=== PATIENT | female | born 1940 | race Caucasian/White ===

== ENCOUNTER → 2019-02-04 | Outpatient (CLI) | payer OTHER ==
--- NOTE | 2019-02-06 12:57 | RAD ---
DATE: February 04, 2019 EXAM: MAMMO BRIDGER SCREENING BILATERAL HISTORY: Screening study. COMPARISON: April 18, 2015 2-D digital mammographic views of both breasts were performed in the CC and MLO projections. 3-D digital tomosynthesis images of both breasts were performed in the CC and MLO projections and reviewed on a computer workstation. This study was interpreted with the benefit of Computerized Aided Detection (CAD). FINDINGS: Breast Density: FATTY The breast parenchyma is primarily fatty replaced. Breast parenchyma level density A.. There are no dominant suspicious masses, suspicious microcalcifications or evidence of architectural distortion. IMPRESSION: No mammographic indicators for malignancy. BI-RADS CATEGORY: 1 NEGATIVE RECOMMENDED FOLLOW-UP: 12M 12 MONTH FOLLOW-UP PQRS compliance statement: Patient information was entered into a reminder system with a target due date February 06, 2020 for the next mammogram. Mammography is a sensitive method for finding small breast cancers, but it does not detect them all and is not a substitute for careful clinical examination. A negative mammogram does not negate a clinically suspicious finding and should not result in delay in biopsying a clinically suspicious abnormality. "Our facility is accredited by the [employer] Mammography Program." The patient's breast density may affect the ability of mammography to detect breast cancer. There are 4 categories of breast density, A, B, C and D. Breast density A means that most of the breast tissue is replaced with adipose tissue and therefore is not dense. Breast density B means that the breast tissue is mildly dense and scattered. Breast density C means that the breast tissue is heterogeneously dense. Breast density D means that the breast tissue is very dense. Breast densities especially C and D may decrease the sensitivity of mammography to detect breast cancer. Therefore, the patient may benefit from 3-D breast mammography (3D breast tomography) as a part of their screening mammogram. Insurance may or may not pay for this additional imaging. The patient's breast density based on today's mammogram is category A.
== END | disposition home or self-care (01) ==
LOC: MAMMO 10:10
PROVIDERS: ATTEND Family Medicine
DX: Z12.31 Encounter for screening mammogram for malignant neoplasm of breast (principal)
CPT/HCPCS: 77063; 77067

== ENCOUNTER 2019-07-09 12:58 | Inpatient (IN) | payer OTHER ==
[~2019-07-09] VITALS: Ht 162.6 cm; Wt 62.4 kg
[2019-07-09] MEDS ORDERED: ONDANSETRON PF 4 MG/2 ML VIAL. IV ONE (15:00)
[2019-07-09] MEDS ORDERED: fentaNYL PF VIAL 100 MCG/2 ML VIAL IV ONE (15:00)
[2019-07-09] MEDS ORDERED: CLINDAMYCIN 600MG PREMIX 50 ML IV ONE (15:00)
--- NOTE | 2019-07-09 15:31 | RAD ---
AP and lateral right tibia and fibula radiographs 07/09/2019 CLINICAL HISTORY: Right lower leg injury. AP and lateral digital radiographs of the right tibia and fibula were obtained. No fracture or dislocation is seen. No radiopaque foreign body is noted. IMPRESSION: No fracture or dislocation of the right tibia or fibula is seen. Electronically signed by: Hunter Vasques MD (07/09/2019 3:28 PM) [facility]
--- NOTE | 2019-07-09 15:41 | PHYS DOC ---
Past Medical History Past Medical History: Depression, High Cholesterol Additional Past Medical Histor: high cholesterol, Parkinsons Past Surgical History: No Surgical History Additional Past Surgical Histo: eye surgery Alcohol Use: Occasionally Drug Use: None Adult General Chief Complaint Chief Complaint: FOOT INJURY PAIN [facility] HPI Patient is a 79 year old female that presents with right lower extremity pain has been ongoing since Wednesday. The patient states that she fell while her was trying to push a trailer and the trailer ran over her leg. The patient states she cut her leg and then 2 days later it started getting red and hot to the touch. She started bruising right after the trailer went over the R leg. She rates her pain as 10 out of 10 in severity and sharp. Has not taken anything for the pain. Review of Systems Review of Systems Constitutional: Denies fever or chills [] Eyes: Denies change in visual acuity, redness, or eye pain [] HENT: Denies nasal congestion or sore throat [] Respiratory: Denies cough or shortness of breath [] Cardiovascular: No additional information not addressed in HPI [] GI: Denies abdominal pain, nausea, vomiting, bloody stools or diarrhea [] : Denies dysuria or hematuria [] Musculoskeletal: Reports pain to the R lower extremity. Integument: Reports bruising and redness. Neurologic: Denies headache, focal weakness or sensory changes [] Endocrine: Denies polyuria or polydipsia [] Complete systems were reviewed and found to be within normal limits, except as documented in this note. Current Medications Current Medications Current Medications Medications (Trade) Dose Ordered Sig/Brenda Start Time Stop Time Status Last Admin Dose Admin Clindamycin Phosphate 50 ml @ 100 mls/hr 1X ONCE 07/09/19 15:00 07/09/19 15:29 DC 07/09/19 15:53 100 MLS/HR Fentanyl Citrate (Fentanyl 2ml Vial) 50 mcg PRN Q1HR PRN 07/09/19 16:45 07/10/19 16:44 Ondansetron HCl (Zofran) 4 mg PRN Q8HRS PRN 07/09/19 16:45 07/10/19 16:44 Allergies Allergies Allergies Coded Allergies Type Severity Reaction Last Updated Verified No Known Drug Allergies 12/24/13 No Physical Exam Physical Exam Constitutional: Well developed, well nourished, no acute distress, non-toxic appearance. [] HENT: Normocephalic, atraumatic, bilateral external ears normal, oropharynx moist, no oral exudates, nose normal. [] Eyes: PERRLA, EOMI, conjunctiva normal, no discharge. [] Neck: Normal range of motion, no tenderness, supple, no stridor. [] Cardiovascular:Heart rate regular rhythm, no murmur [] Lungs & Thorax: Bilateral breath sounds clear to auscultation [] Abdomen: Bowel sounds normal, soft, no tenderness, no masses, no pulsatile masses. [] Skin: Bruising and erythema to the R leg. Back: No tenderness, no CVA tenderness. [] Extremities: Tenderness and edema to R leg, cut superior to ankle that is scabbed over. Neurologic: Alert and oriented X 3, normal motor function, normal sensory function, no focal deficits noted. [] Psychologic: Affect normal, judgement normal, mood normal. [] Current Patient Data Vital Signs Vital Signs Date Time Temp Pulse Resp B/P (MAP) Pulse Ox O2 Delivery O2 Flow Rate FiO2 07/09/19 13:35 97.7 80 20 97/49 (65) 95 Room Air 97.7 Lab Values Laboratory Tests Test 07/09/19 15:40 White Blood Count 8.6 x10^3/uL (4.0-11.0) Red Blood Count 4.08 x10^6/uL (3.50-5.40) Hemoglobin 12.5 g/dL (12.0-15.5) Hematocrit 37.4 % (36.0-47.0) Mean Corpuscular Volume 92 fL (79-100) Mean Corpuscular Hemoglobin 31 pg (25-35) Mean Corpuscular Hemoglobin Concent 34 g/dL (31-37) Red Cell Distribution Width 12.8 % (11.5-14.5) Platelet Count 188 x10^3/uL (140-400) Neutrophils (%) (Auto) 74 % (31-73) H Lymphocytes (%) (Auto) 16 % (24-48) L Monocytes (%) (Auto) 7 % (0-9) Eosinophils (%) (Auto) 2 % (0-3) Basophils (%) (Auto) 1 % (0-3) Neutrophils # (Auto) 6.4 x10^3/uL (1.8-7.7) Lymphocytes # (Auto) 1.4 x10^3/uL (1.0-4.8) Monocytes # (Auto) 0.6 x10^3/uL (0.0-1.1) Eosinophils # (Auto) 0.2 x10^3/uL (0.0-0.7) Basophils # (Auto) 0.0 x10^3/uL (0.0-0.2) Sodium Level 144 mmol/L (136-145) Potassium Level 3.9 mmol/L (3.5-5.1) Chloride Level 107 mmol/L (98-107) Carbon Dioxide Level 29 mmol/L (21-32) Anion Gap 8 (6-14) Blood Urea Nitrogen 26 mg/dL (7-20) H Creatinine 0.9 mg/dL (0.6-1.0) Estimated GFR (Cockcroft-Gault) 60.6 BUN/Creatinine Ratio 29 (6-20) H Glucose Level 109 mg/dL (70-99) H Lactic Acid Level 1.2 mmol/L (0.4-2.0) Calcium Level 9.3 mg/dL (8.5-10.1) Total Bilirubin 1.0 mg/dL (0.2-1.0) Aspartate Amino Transferase (AST) 30 U/L (15-37) Alanine Aminotransferase (ALT) 8 U/L (14-59) L Alkaline Phosphatase 59 U/L (46-116) Total Protein 7.4 g/dL (6.4-8.2) Albumin 3.8 g/dL (3.4-5.0) Albumin/Globulin Ratio 1.1 (1.0-1.7) Laboratory Tests 07/09/19 15:40 Laboratory Tests 07/09/19 15:40 EKG EKG [] Radiology/Procedures Radiology/Procedures [facility] [address] [place], [place] [id number] IMAGING REPORT Signed PATIENT: YVONNE YORK ACCOUNT: [id number] : 1940 LOCATION: ER AGE: 79 SEX: F EXAM STATUS: REG ER ORD. PHYSICIAN: JARRELL RIVERA APRN REASON: trauma, TRAILER ROLLED OVER FOOT ONE WEEK AGO PROCEDURE: TIBIA FIBULA RIGHT AP and lateral right tibia and fibula radiographs 07/09/2019 CLINICAL HISTORY: Right lower leg injury. AP and lateral digital radiographs of the right tibia and fibula were obtained. No fracture or dislocation is seen. No radiopaque foreign body is noted. IMPRESSION: No fracture or dislocation of the right tibia or fibula is seen. Electronically signed by: Hunter Vasques MD (07/09/2019 3:28 PM) [facility] DICTATED and SIGNED BY: HUNTER VASQUES MD DATE: 07/09/19 1528 [facility] [address] [place] [address] IMAGING REPORT Signed PATIENT: YVONNE YORK ACCOUNT: [id number] : 1940 LOCATION: ER AGE: 79 SEX: F EXAM STATUS: REG ER ORD. PHYSICIAN: JARRELL RIVERA APRN REASON: swelling, pain PROCEDURE: VENOUS LOWER EXTREMITY RIGHT Right lower extremity venous duplex study 07/09/2019 Clinical History: Right leg swelling and pain. Technique: Using a combination of real time ultrasound imaging and color-flow and pulse Doppler imaging techniques along with graded compression and augmentation, duplex evaluation of the deep venous system of the right lower extremity was performed. Multiple images were obtained. Findings: There is no sonographic evidence of deep venous thrombosis involving the visualized deep venous structures of the right lower extremity. Impression: Negative study. Electronically signed by: Hunter Vasques MD (07/09/2019 3:57 PM) [facility] DICTATED and SIGNED BY: HUNTER VASQUES MD DATE: 07/09/19 1557 [][facility] [address] [place], [place] [id number] IMAGING REPORT Signed PATIENT: YVONNE YORK ACCOUNT: [id number] : 1940 LOCATION: ER AGE: 79 SEX: F EXAM STATUS: REG ER ORD. PHYSICIAN: RIVERA,JARRELL TRAILER ASSEMBLER REASON: trauma, TRAILER ROLLED OVER FOOT ONE WEEK PROCEDURE: ANKLE RIGHT 3V Three-view right ankle and right foot radiographs 07/09/2019 CLINICAL HISTORY: Injury to the right ankle and right foot one week ago. Pain and swelling. AP, lateral and oblique digital radiographs of the right ankle were obtained. AP lateral and oblique digital radiographs of right foot were obtained. The right ankle mortise is intact. No fracture or dislocation is seen. Soft tissue swelling surrounds the medial and lateral malleolus. Mild degenerative changes are seen involving the right ankle. No fracture or dislocation of the right foot is seen. Mild to moderate degenerative changes are seen throughout the interphalangeal joints of the right foot along the first MTP joint. IMPRESSION: No fracture or dislocation of the right foot or ankle is seen. Electronically signed by: Hunter Vasques MD (07/09/2019 3:56 PM) [facility] DICTATED and SIGNED BY: HUNTER VASQUES MD DATE: 07/09/19 1551 Course & Med Decision Making Course & Med Decision Making Pertinent Labs and Imaging studies reviewed. (See chart for details) Will get ultrasound and x-ray, labs, and start Clindamycin for cellulitis. Imaging and labs are unremarkable. Will call Dr. Lyons for admission. Discussed with Dr. Lyons who agrees to admission ([id number]). Dragon Disclaimer Dragon Disclaimer This electronic medical record was generated, in whole or in part, using a voice recognition dictation system. Departure Departure Impression: Primary Impression: Cellulitis Disposition: ADMITTED INPATIENT Admitting Physician: NANY Condition: STABLE Referrals: JHONY FINE (PCP) Problem Qualifiers Primary Impression: Cellulitis Site of cellulitis: extremity Site of cellulitis of extremity: lower extremity Laterality: right Qualified Codes: L03.115 - Cellulitis of right lower limb JARRELL RIVERA TRAILER ASSEMBLER Jul 09, 2019 15:41
[2019-07-09 15:52] LABS: BASO % 1 % (0-3); EOS # 0.2 x10^3/uL (0.0-0.7); EOS % 2 % (0-3); HEMATOCRIT 37.4 % (36.0-47.0); HEMOGLOBIN 12.5 g/dL (12.0-15.5); LYMPH # 1.4 x10^3/uL (1.0-4.8); LYMPH % 16 % (24-48); MEAN CORPUSCULAR HEMOGLOBIN 31 pg (25-35); MEAN CORPUSCULAR HGB CONC 34 g/dL (31-37); MEAN CORPUSCULAR VOLUME 92 fL (79-100); MONO # 0.6 x10^3/uL (0.0-1.1); MONO % 7 % (0-9); NEUT # 6.4 x10^3/uL (1.8-7.7); NEUT % 74 % (31-73); PLATELET COUNT 188 x10^3/uL (140-400); RED BLOOD COUNT 4.08 x10^6/uL (3.50-5.40); RED CELL DISTRIBUTION WIDTH 12.8 % (11.5-14.5); WHITE BLOOD COUNT 8.6 x10^3/uL (4.0-11.0)
[2019-07-09 15:57] LABS: CALCIUM 9.3 mg/dL (8.5-10.1); CREATININE 0.9 mg/dL (0.6-1.0); GFR 60.6; POTASSIUM 3.9 mmol/L (3.5-5.1)
--- NOTE | 2019-07-09 15:59 | RAD ---
Three-view right ankle and right foot radiographs 07/09/2019 CLINICAL HISTORY: Injury to the right ankle and right foot one week ago. Pain and swelling. AP, lateral and oblique digital radiographs of the right ankle were obtained. AP lateral and oblique digital radiographs of right foot were obtained. The right ankle mortise is intact. No fracture or dislocation is seen. Soft tissue swelling surrounds the medial and lateral malleolus. Mild degenerative changes are seen involving the right ankle. No fracture or dislocation of the right foot is seen. Mild to moderate degenerative changes are seen throughout the interphalangeal joints of the right foot along the first MTP joint. IMPRESSION: No fracture or dislocation of the right foot or ankle is seen. Electronically signed by: Hunter Vasques MD (07/09/2019 3:56 PM) [facility]
--- NOTE | 2019-07-09 16:01 | RAD ---
Right lower extremity venous duplex study 07/09/2019 Clinical History: Right leg swelling and pain. Technique: Using a combination of real time ultrasound imaging and color-flow and pulse Doppler imaging techniques along with graded compression and augmentation, duplex evaluation of the deep venous system of the right lower extremity was performed. Multiple images were obtained. Findings: There is no sonographic evidence of deep venous thrombosis involving the visualized deep venous structures of the right lower extremity. Impression: Negative study. Electronically signed by: Hunter Vasques MD (07/09/2019 3:57 PM) [facility]
[2019-07-09 16:03] LABS: ALBUMIN 3.8 g/dL (3.4-5.0); ALBUMIN/GLOBULIN RATIO 1.1 (1.0-1.7); TOTAL PROTEIN 7.4 g/dL (6.4-8.2)
[2019-07-09] MEDS ORDERED: ONDANSETRON PF 4 MG/2 ML VIAL. IV PRN (16:45)
--- NOTE | 2019-07-09 16:46 | PDOC1 ---
History and Physical Date of Admission Date of Admission DATE: 07/09/19 TIME: 16:46 Identification/Chief Complaint Chief Complaint Leg pain Source Source: Patient History of Present Illness History of Present Illness Ms Pain is a 79yo F w/ PMHx Depression, High Cholesterol, Parkinsons who p/w right lower extremity pain has been worsening since Wednesday. The patient states that she fell while her was trying to push a trailer and the trailer ran over her leg. The patient states she cut her leg and then 2 days later it started getting red and hot to the touch with 2 "blood blisters associated. She rates her pain as 10 out of 10 in severity and sharp. She is having difficulty bearing weight. Foot, ankle, and Tib/Fib Xr in ED negative for fracture and right venous lower extremity doppler negative for DVT. 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 Her was actually also treated for an achilles tendon rupture and is very supportive. Past Medical History Cardiovascular: Hyperlipidemia Pulmonary: No pertinent hx CENTRAL NERVOUS SYSTEM: Other (Parkinsons) GI: No pertinent hx Heme/Onc: No pertinent hx Hepatobiliary: No pertinent hx Psych: Depression Infectious disease: No pertinent hx ENT: No pertinent hx Renal/: No pertinent hx Endocrine: No pertinent hx Dermatology: No pertinent hx Past Surgical History Past Surgical History: Cataract Removal Family History Family History: High Cholestrol, Hypertension Social History Smoke: No ALCOHOL: none Drugs: None Current Problem List Problem List Problems Medical Problems: (1) Cellulitis Status: Acute Current Medications Current Medications Current Medications Clindamycin Phosphate 50 ml @ 100 mls/hr 1X ONCE IV Last administered on 07/09/19at 15:53; Start 07/09/19 at 15:00; Stop 07/09/19 at 15:29; Status DC Fentanyl Citrate (Fentanyl 2ml Vial) 50 mcg 1X ONCE IV Last administered on 07/09/19at 15:49; Start 07/09/19 at 15:00; Stop 07/09/19 at 15:01; Status DC Ondansetron HCl (Zofran) 4 mg 1X ONCE IV Last administered on 07/09/19at 15:49; Start 07/09/19 at 15:00; Stop 07/09/19 at 15:01; Status DC Active Scripts Active Allergies Allergies: Coded Allergies: No Known Drug Allergies (Unverified , 12/24/13) ROS General: No: Chills, Night Sweats, Fatigue, Malaise, Appetite, Other PSYCHOLOGICAL ROS: No: Anxiety, Behavioral Disorder, Concentration difficultie, Decreased libido, Depression, Disorientation, Hallucinations, Hostility, Irritablity, Memory difficulties, Mood Swings, Obsessive thoughts, Physical abuse, Sexual abuse, Sleep disturbances, Suicidal ideation, Other Eyes: No Blurry vision, No Decreased vision, No Double vision, No Dry eyes, No Excessive tearing, No Eye Pain, No Itchy Eyes, No Loss of vision, No Photophobia, No Scotomata, No Uses contacts, No Uses glasses, No Other HEENT: No: Heacaches, Visual Changes, Hearing change, Nasal congestion, Nasal discharge, Oral lesions, Sinus pain, Sore Throat, Epistaxis, Sneezing, Snoring, Tinnitus, Vertigo, Vocal changes, Other ALLERGY AND IMMUNOLOGY: No: Hives, Insect Bite Sensitivity, Itchy/Watery Eyes, Nasal Congestion, Post Nasal Drip, Seasonal Allergies, Other Hematological and Lymphatic: No: Bleeding Problems, Blood Clots, Blood Transfusions, Brusing, Night Sweats, Pallor, Swollen Lymph Nodes, Other ENDOCRINE: No: Breast Changes, Galactorrhea, Hair Pattern Changes, Hot Flashes, Malaise/lethargy, Mood Swings, Palpitations, Polydipsia/polyuria, Skin Changes, Temperature Intolerance, Unexpected Weight Changes, Other Breast: No New/Changing Breast Lumps, No Nipple changes, No Nipple discharge, No Other Respiratory: No: Cough, Hemoptysis, Orthopnea, Pleuritic Pain, Shortness of breath, SOB with excertion, Sputum Changes, Stridor, Tachypnea, Wheezing, Other Cardiovascular: No Chest Pain, No Palpitations, No Orthopnea, No Paroxysmal Noc. Dyspnea, No Edema, No Lt Headedness, No Other Gastrointestinal: No Nausea, No Vomiting, No Abdominal Pain, No Diarrhea, No Constipation, No Melena, No Hematochezia, No Other Genitourinary: No Dysuria, No Frequency, No Incontinence, No Hematuria, No Retention, No Discharge, No Urgency, No Pain, No Flank Pain, No Other, No , No , No , No , No , No , No Musculoskeletal: Yes Gait Disturbance, Yes Joint Pain, Yes Muscle Pain; No Joint Stiffness, No Joint Swelling, No Muscular Weakness, No Pain In:, No Swelling In:, No Other Neurological: No Behavorial Changes, No Bowel/Bladder ControlChng, No Confusion, No Dizziness, No Gait Disturbance, No Headaches, No Impaired Coord/balance, No Memory Loss, No Numbness/Tingling, No Seizures, No Speech Problems, No Tremors, No Visual Changes, No Weakness, No Other Skin: Yes Rash, Yes Skin Lesion Changes; No Dry Skin, No Eczema, No Hair Changes, No Lumps, No Mole Changes, No Mottling, No Nail Changes, No Pruritus, No Other, No Acne Physical Exam General: Alert, Oriented X3, Cooperative, No acute distress HEENT: Atraumatic, PERRLA, EOMI, Mucous membr. moist/pink Lungs: Clear to auscultation, Normal air movement Heart: S1S2, RRR, no thrills, no rubs, no gallops, no murmurs Abdomen: Normal bowel sounds, Soft, No tenderness, No hepatosplenomegaly, No masses Rectal Exam: not examined Extremities: No clubbing, No cyanosis, Normal pulses, Other (Right calf with circumferential swelling, tenderness and edema, not in ankle joint) Skin: Other (Blistering of right calf and tender, red, swollen in circumferential 6 cm region) Neuro: Normal speech, Strength at 5/5 X4 ext, Normal tone, Sensation intact, Cranial nerves 3-12 NL, Reflexes 2+ Psych/Mental Status: Mental status NL, Mood NL Vitals Vitals Vital Signs Date Time Temp Pulse Resp B/P (MAP) Pulse Ox O2 Delivery O2 Flow Rate FiO2 07/09/19 13:35 97.7 80 20 97/49 (65) 95 Room Air 97.7 Labs Labs Laboratory Tests Test 07/09/19 15:40 White Blood Count 8.6 x10^3/uL (4.0-11.0) Red Blood Count 4.08 x10^6/uL (3.50-5.40) Hemoglobin 12.5 g/dL (12.0-15.5) Hematocrit 37.4 % (36.0-47.0) Mean Corpuscular Volume 92 fL (79-100) Mean Corpuscular Hemoglobin 31 pg (25-35) Mean Corpuscular Hemoglobin Concent 34 g/dL (31-37) Red Cell Distribution Width 12.8 % (11.5-14.5) Platelet Count 188 x10^3/uL (140-400) Neutrophils (%) (Auto) 74 % (31-73) Lymphocytes (%) (Auto) 16 % (24-48) Monocytes (%) (Auto) 7 % (0-9) Eosinophils (%) (Auto) 2 % (0-3) Basophils (%) (Auto) 1 % (0-3) Neutrophils # (Auto) 6.4 x10^3/uL (1.8-7.7) Lymphocytes # (Auto) 1.4 x10^3/uL (1.0-4.8) Monocytes # (Auto) 0.6 x10^3/uL (0.0-1.1) Eosinophils # (Auto) 0.2 x10^3/uL (0.0-0.7) Basophils # (Auto) 0.0 x10^3/uL (0.0-0.2) Sodium Level 144 mmol/L (136-145) Potassium Level 3.9 mmol/L (3.5-5.1) Chloride Level 107 mmol/L (98-107) Carbon Dioxide Level 29 mmol/L (21-32) Anion Gap 8 (6-14) Blood Urea Nitrogen 26 mg/dL (7-20) Creatinine 0.9 mg/dL (0.6-1.0) Estimated GFR (Cockcroft-Gault) 60.6 BUN/Creatinine Ratio 29 (6-20) Glucose Level 109 mg/dL (70-99) Lactic Acid Level 1.2 mmol/L (0.4-2.0) Calcium Level 9.3 mg/dL (8.5-10.1) Total Bilirubin 1.0 mg/dL (0.2-1.0) Aspartate Amino Transf (AST/SGOT) 30 U/L (15-37) Alanine Aminotransferase (ALT/SGPT) 8 U/L (14-59) Alkaline Phosphatase 59 U/L (46-116) Total Protein 7.4 g/dL (6.4-8.2) Albumin 3.8 g/dL (3.4-5.0) Albumin/Globulin Ratio 1.1 (1.0-1.7) Laboratory Tests Test 07/09/19 15:40 White Blood Count 8.6 x10^3/uL (4.0-11.0) Red Blood Count 4.08 x10^6/uL (3.50-5.40) Hemoglobin 12.5 g/dL (12.0-15.5) Hematocrit 37.4 % (36.0-47.0) Mean Corpuscular Volume 92 fL (79-100) Mean Corpuscular Hemoglobin 31 pg (25-35) Mean Corpuscular Hemoglobin Concent 34 g/dL (31-37) Red Cell Distribution Width 12.8 % (11.5-14.5) Platelet Count 188 x10^3/uL (140-400) Neutrophils (%) (Auto) 74 % (31-73) Lymphocytes (%) (Auto) 16 % (24-48) Monocytes (%) (Auto) 7 % (0-9) Eosinophils (%) (Auto) 2 % (0-3) Basophils (%) (Auto) 1 % (0-3) Neutrophils # (Auto) 6.4 x10^3/uL (1.8-7.7) Lymphocytes # (Auto) 1.4 x10^3/uL (1.0-4.8) Monocytes # (Auto) 0.6 x10^3/uL (0.0-1.1) Eosinophils # (Auto) 0.2 x10^3/uL (0.0-0.7) Basophils # (Auto) 0.0 x10^3/uL (0.0-0.2) Sodium Level 144 mmol/L (136-145) Potassium Level 3.9 mmol/L (3.5-5.1) Chloride Level 107 mmol/L (98-107) Carbon Dioxide Level 29 mmol/L (21-32) Anion Gap 8 (6-14) Blood Urea Nitrogen 26 mg/dL (7-20) Creatinine 0.9 mg/dL (0.6-1.0) Estimated GFR (Cockcroft-Gault) 60.6 BUN/Creatinine Ratio 29 (6-20) Glucose Level 109 mg/dL (70-99) Lactic Acid Level 1.2 mmol/L (0.4-2.0) Calcium Level 9.3 mg/dL (8.5-10.1) Total Bilirubin 1.0 mg/dL (0.2-1.0) Aspartate Amino Transf (AST/SGOT) 30 U/L (15-37) Alanine Aminotransferase (ALT/SGPT) 8 U/L (14-59) Alkaline Phosphatase 59 U/L (46-116) Total Protein 7.4 g/dL (6.4-8.2) Albumin 3.8 g/dL (3.4-5.0) Albumin/Globulin Ratio 1.1 (1.0-1.7) VTE Prophylaxis Ordered VTE Prophylaxis Devices: No VTE Pharmacological Prophylaxi: Yes Assessment/Plan Assessment/Plan A/P: Right leg cellulitis - having difficulty with weight bearing and unbearable pain. Will admit on vancomycin and cefazolin. Elevate and wrap extremity. PT to see and OT as well Right lower leg injury - no fracture, significant bruising. Will medicate pain HLD - cont statin Depression - cont to monitor Parkinsons - cont nightly donepezil and TID sinemet. Stable disease FEN - General diet PPX - heparin FULL CODE Dispo - inpatient for cellulitis 2/2 leg trauma CRISTEL KIRK MD Jul 09, 2019 16:46
[2019-07-09] MEDS: fentaNYL PF VIAL 100 MCG/2 ML VIAL IV PRN ×2 (17:21→18:16)
[2019-07-09 17:38] LABS: BILIRUBIN,URINE NEGATIVE (NEG); CLARITY,URINE CLEAR; COLOR,URINE YELLOW; NITRITE,URINE NEGATIVE (NEG); PH,URINE 5.5; PROTEIN,URINE NEGATIVE (NEG-TRACE); UROBILINOGEN,URINE 0.2 mg/dL (0.2 mg/dL)
[2019-07-09 17:45] LABS: BACTERIA,URINE FEW /HPF (0-FEW); RBC,URINE OCC /HPF (0-2); SQUAMOUS EPITHELIAL CELL,UR FEW /LPF
--- NOTE | 2019-07-09 18:00 | NUR ---
The patient, YVONNE YORK, 79 y/o, F admitted by CRISTEL KIRK MD, was given written information regarding hospital policies, unit procedures and contact persons. Valuables were checked and assessment was complete. Telephone contact with both of patients daughters
[2019-07-09] MEDS ORDERED: CA C1TAB67 PO (19:51)
[2019-07-09] MEDS ORDERED: OMEG1CAP38 PO (19:51)
[2019-07-09] MEDS ORDERED: ATOR20TA PO (19:51)
[2019-07-09] MEDS ORDERED: DONE5TAB7 PO (19:51)
[2019-07-09] MEDS ORDERED: FLUO10CA7 PO (19:51)
[2019-07-09] MEDS ORDERED: CARB1TAB2 PO (19:51)
[2019-07-09] MEDS ORDERED: MULT-246 PO (19:51)
[2019-07-09] MEDS ORDERED: ASPI81TA50 PO (19:51)
[2019-07-09 20:05] VITALS: BP 168/72
--- NOTE | 2019-07-09 20:11 | NUR ---
Pharmacy Vancomycin Dosing Note S:Consulted to monitor and dose vancomycin started 07/09/19. O:PAIN,YVONNE Padilla is a 79 year old F with Cellulitis Height: 5 feet, 4 inches Weight: 61.2 kg [place] Body Weight: 54.70 Adjusted Body Weight: 57.22 Dosing Weight: Actual Other Antibiotics: CEFAZOLIN LABS: Last BUN: 26 Last Creatinine: 0.9 Creatinine Clearance: 42 mL/min Last WBC: 8.6 Last Procalcitonin: Tmax (past 24 hours): 97.9 Microbiology: I/O: Drug Levels: Last level: on at Last dose given at Vancomycin Dosing: Loading Dose: 1250 mg x1 Dosing Weight: Actual Target Trough: 10-20 A: Based on: weight and renal function P: 1. Begin Vancomycin 1000 mg IV q24h 2. Follow up Trough level on 07/11/19 at 2030 3. Pharmacy will continue to monitor, follow and adjust therapy as needed. Carley Duong RPH, 07/09/192010
[2019-07-09] MEDS ORDERED: VANCOMYCIN PER PHARMACY MC PRN (20:15)
[2019-07-09] MEDS ORDERED: VANCOMYCIN 1.25 GM in IV NORMAL SALINE 250ML 250 ML IV ONE (20:30)
[2019-07-09] MEDS: DONEPEZIL HCL 5 MG TABLET. PO SCH (21:00)
[2019-07-09] MEDS: ATORVASTATIN CALCIUM 20 MG TABLET PO SCH (21:00)
[2019-07-09] MEDS: FLUoxetine HCL 10 MG CAPSULE PO SCH (21:00)
[2019-07-09] MEDS: CARBIDOPA/LEVODOPA 25/100MG TABLET PO SCH (21:00)
[2019-07-09] MEDS: ceFAZolin SODIUM IV Push 1 GM VIAL. IVP SCH (21:01)
[2019-07-09] MEDS: HEPARIN for SUB-Q USE 5,000 UNIT/ML VIAL. SQ SCH (21:16)
[2019-07-09] MEDS ORDERED: ceFAZolin SODIUM 1 GM in IV DEXTROSE 5% 50 ML IV SCH (22:00)
[2019-07-09 22:40] VITALS: BP 168/93
[2019-07-10 03:00] VITALS: BP 125/71
[2019-07-10] MEDS: ceFAZolin SODIUM IV Push 1 GM VIAL. IVP SCH ×3 (04:56→22:16)
[2019-07-10] MEDS: HEPARIN for SUB-Q USE 5,000 UNIT/ML VIAL. SQ SCH ×3 (05:03→22:00)
[2019-07-10 07:00] VITALS: BP 159/73
[2019-07-10] MEDS ORDERED: VANCOMYCIN 750 MG in IV NORMAL SALINE 250ML 250 ML IV SCH (08:00)
[2019-07-10] MEDS: ASPIRIN ENTERIC COATED 81 MG TABLET.DR. PO SCH (09:24)
[2019-07-10] MEDS: MULTIVITAMIN with MINERAL TABLET. PO SCH (09:24)
[2019-07-10] MEDS: OMEGA-3 FATTY ACIDS/FISH OIL 1,000 MG CAPSULE. PO SCH (09:24)
[2019-07-10] MEDS: CALCIUM CARB/VIT D3 500/200 TABLET. PO SCH (09:24)
[2019-07-10] MEDS: CARBIDOPA/LEVODOPA 25/100MG TABLET PO SCH ×3 (09:24→22:15)
[2019-07-10 11:00] VITALS: BP 110/61
[2019-07-10] MEDS ORDERED: MORPHINE SULFATE 2 MG/ML VIAL. IV PRN (11:45)
[2019-07-10] MEDS ORDERED: ONDANSETRON PF 4 MG/2 ML VIAL. IV PRN (11:45)
[2019-07-10] MEDS ORDERED: HYDROcodone/APAP 5/325MG 1 TAB TABLET PO PRN (11:45)
--- NOTE | 2019-07-10 13:47 | PDOC ---
PROGRESS NOTES Chief Complaint Chief Complaint Right leg cellulitis - having difficulty with weight bearing and unbearable pain. Will admit on vancomycin and cefazolin. Elevate and wrap extremity. PT to see and OT as well Right lower leg injury - no fracture, significant bruising. Will medicate pain HLD - cont statin Depression - cont to monitor Parkinsons - cont nightly donepezil and TID sinemet. Stable disease History of Present Illness History of Present Illness Her right leg is much more swollen than the left, she claims this is the first good day in terms of swelling She has a blister on that right medial thigh, she claims she gets that- it bursts and then happens again Dermatology not available - DR sanders retiring No fever, asks when she can go home Lives in a trailer? With the Colleague has her on Vanco and cefazolin PLAN: elevate leg, rt check arterial dopplers - signif pain on touch, dusky? VEnous dopplers neg No fx - ambulate with PT Target home tmr - wait for more swelling and redness to come down Vitals Vitals Vital Signs Date Time Temp Pulse Resp B/P (MAP) Pulse Ox O2 Delivery O2 Flow Rate FiO2 07/10/19 11:00 98.4 75 17 110/61 (77) 95 Room Air 98.4 Physical Exam General: Alert, Oriented X3, Cooperative, No acute distress Abdomen: Normal bowel sounds, Soft, No tenderness, No hepatosplenomegaly, No masses Extremities: No clubbing, No cyanosis, Normal pulses, Other (Right calf with circumferential swelling, tenderness and edema, not in ankle joint) Skin: Other (Blistering of right calf and tender, red, swollen in ci rcumferential 6 cm region) Labs LABS Laboratory Tests Test 07/09/19 15:20 07/09/19 15:40 Urine Collection Type Unknown Urine Color Yellow Urine Clarity Clear Urine pH 5.5 Urine Specific [place] 1.025 Urine Protein Negative mg/dL (NEG-TRACE) Urine Glucose (UA) Negative mg/dL (NEG) Urine Ketones (Stick) Negative mg/dL (NEG) Urine Blood Negative (NEG) Urine Nitrite Negative (NEG) Urine Bilirubin Negative (NEG) Urine Urobilinogen Dipstick 0.2 mg/dL (0.2 mg/dL) Urine Leukocyte Esterase Small (NEG) Urine RBC Occ /HPF (0-2) Urine WBC 5-10 /HPF (0-4) Urine Squamous Epithelial Cells Few /LPF Urine Bacteria Few /HPF (0-FEW) Urine Mucus Marked /LPF White Blood Count 8.6 x10^3/uL (4.0-11.0) Red Blood Count 4.08 x10^6/uL (3.50-5.40) Hemoglobin 12.5 g/dL (12.0-15.5) Hematocrit 37.4 % (36.0-47.0) Mean Corpuscular Volume 92 fL (79-100) Mean Corpuscular Hemoglobin 31 pg (25-35) Mean Corpuscular Hemoglobin Concent 34 g/dL (31-37) Red Cell Distribution Width 12.8 % (11.5-14.5) Platelet Count 188 x10^3/uL (140-400) Neutrophils (%) (Auto) 74 % (31-73) Lymphocytes (%) (Auto) 16 % (24-48) Monocytes (%) (Auto) 7 % (0-9) Eosinophils (%) (Auto) 2 % (0-3) Basophils (%) (Auto) 1 % (0-3) Neutrophils # (Auto) 6.4 x10^3/uL (1.8-7.7) Lymphocytes # (Auto) 1.4 x10^3/uL (1.0-4.8) Monocytes # (Auto) 0.6 x10^3/uL (0.0-1.1) Eosinophils # (Auto) 0.2 x10^3/uL (0.0-0.7) Basophils # (Auto) 0.0 x10^3/uL (0.0-0.2) Sodium Level 144 mmol/L (136-145) Potassium Level 3.9 mmol/L (3.5-5.1) Chloride Level 107 mmol/L (98-107) Carbon Dioxide Level 29 mmol/L (21-32) Anion Gap 8 (6-14) Blood Urea Nitrogen 26 mg/dL (7-20) Creatinine 0.9 mg/dL (0.6-1.0) Estimated GFR (Cockcroft-Gault) 60.6 BUN/Creatinine Ratio 29 (6-20) Glucose Level 109 mg/dL (70-99) Lactic Acid Level 1.2 mmol/L (0.4-2.0) Calcium Level 9.3 mg/dL (8.5-10.1) Total Bilirubin 1.0 mg/dL (0.2-1.0) Aspartate Amino Transf (AST/SGOT) 30 U/L (15-37) Alanine Aminotransferase (ALT/SGPT) 8 U/L (14-59) Alkaline Phosphatase 59 U/L (46-116) Total Protein 7.4 g/dL (6.4-8.2) Albumin 3.8 g/dL (3.4-5.0) Albumin/Globulin Ratio 1.1 (1.0-1.7) Anti-Streptolysin O Antibody 30.0 IU/mL (0.0-200.0) Review of Systems Review of Systems Right leg hurts, difficulty ambulating, no SOA, no chest pain-not a vasculopath- no chest pain/CAD hx no PAD, nondiabetic, no dialysis Assessment and Plan Assessmemt and Plan Problems Medical Problems: (1) Cellulitis Status: Acute (2) Depression Status: Chronic (3) HLD (hyperlipidemia) Status: Chronic (4) Injury of right lower leg Status: Acute (5) Parkinsons Status: Chronic Comment Review of Relevant I have reviewed the following items hodan (where applicable) has been applied. Labs Laboratory Tests Test 07/09/19 15:20 07/09/19 15:40 Urine Collection Type Unknown Urine Color Yellow Urine Clarity Clear Urine pH 5.5 Urine Specific [place] 1.025 Urine Protein Negative mg/dL (NEG-TRACE) Urine Glucose (UA) Negative mg/dL (NEG) Urine Ketones (Stick) Negative mg/dL (NEG) Urine Blood Negative (NEG) Urine Nitrite Negative (NEG) Urine Bilirubin Negative (NEG) Urine Urobilinogen Dipstick 0.2 mg/dL (0.2 mg/dL) Urine Leukocyte Esterase Small (NEG) Urine RBC Occ /HPF (0-2) Urine WBC 5-10 /HPF (0-4) Urine Squamous Epithelial Cells Few /LPF Urine Bacteria Few /HPF (0-FEW) Urine Mucus Marked /LPF White Blood Count 8.6 x10^3/uL (4.0-11.0) Red Blood Count 4.08 x10^6/uL (3.50-5.40) Hemoglobin 12.5 g/dL (12.0-15.5) Hematocrit 37.4 % (36.0-47.0) Mean Corpuscular Volume 92 fL (79-100) Mean Corpuscular Hemoglobin 31 pg (25-35) Mean Corpuscular Hemoglobin Concent 34 g/dL (31-37) Red Cell Distribution Width 12.8 % (11.5-14.5) Platelet Count 188 x10^3/uL (140-400) Neutrophils (%) (Auto) 74 % (31-73) Lymphocytes (%) (Auto) 16 % (24-48) Monocytes (%) (Auto) 7 % (0-9) Eosinophils (%) (Auto) 2 % (0-3) Basophils (%) (Auto) 1 % (0-3) Neutrophils # (Auto) 6.4 x10^3/uL (1.8-7.7) Lymphocytes # (Auto) 1.4 x10^3/uL (1.0-4.8) Monocytes # (Auto) 0.6 x10^3/uL (0.0-1.1) Eosinophils # (Auto) 0.2 x10^3/uL (0.0-0.7) Basophils # (Auto) 0.0 x10^3/uL (0.0-0.2) Sodium Level 144 mmol/L (136-145) Potassium Level 3.9 mmol/L (3.5-5.1) Chloride Level 107 mmol/L (98-107) Carbon Dioxide Level 29 mmol/L (21-32) Anion Gap 8 (6-14) Blood Urea Nitrogen 26 mg/dL (7-20) Creatinine 0.9 mg/dL (0.6-1.0) Estimated GFR (Cockcroft-Gault) 60.6 BUN/Creatinine Ratio 29 (6-20) Glucose Level 109 mg/dL (70-99) Lactic Acid Level 1.2 mmol/L (0.4-2.0) Calcium Level 9.3 mg/dL (8.5-10.1) Total Bilirubin 1.0 mg/dL (0.2-1.0) Aspartate Amino Transf (AST/SGOT) 30 U/L (15-37) Alanine Aminotransferase (ALT/SGPT) 8 U/L (14-59) Alkaline Phosphatase 59 U/L (46-116) Total Protein 7.4 g/dL (6.4-8.2) Albumin 3.8 g/dL (3.4-5.0) Albumin/Globulin Ratio 1.1 (1.0-1.7) Anti-Streptolysin O Antibody 30.0 IU/mL (0.0-200.0) Laboratory Tests Test 07/09/19 15:20 07/09/19 15:40 Urine Collection Type Unknown Urine Color Yellow Urine Clarity Clear Urine pH 5.5 Urine Specific [place] 1.025 Urine Protein Negative mg/dL (NEG-TRACE) Urine Glucose (UA) Negative mg/dL (NEG) Urine Ketones (Stick) Negative mg/dL (NEG) Urine Blood Negative (NEG) Urine Nitrite Negative (NEG) Urine Bilirubin Negative (NEG) Urine Urobilinogen Dipstick 0.2 mg/dL (0.2 mg/dL) Urine Leukocyte Esterase Small (NEG) Urine RBC Occ /HPF (0-2) Urine WBC 5-10 /HPF (0-4) Urine Squamous Epithelial Cells Few /LPF Urine Bacteria Few /HPF (0-FEW) Urine Mucus Marked /LPF White Blood Count 8.6 x10^3/uL (4.0-11.0) Red Blood Count 4.08 x10^6/uL (3.50-5.40) Hemoglobin 12.5 g/dL (12.0-15.5) Hematocrit 37.4 % (36.0-47.0) Mean Corpuscular Volume 92 fL (79-100) Mean Corpuscular Hemoglobin 31 pg (25-35) Mean Corpuscular Hemoglobin Concent 34 g/dL (31-37) Red Cell Distribution Width 12.8 % (11.5-14.5) Platelet Count 188 x10^3/uL (140-400) Neutrophils (%) (Auto) 74 % (31-73) Lymphocytes (%) (Auto) 16 % (24-48) Monocytes (%) (Auto) 7 % (0-9) Eosinophils (%) (Auto) 2 % (0-3) Basophils (%) (Auto) 1 % (0-3) Neutrophils # (Auto) 6.4 x10^3/uL (1.8-7.7) Lymphocytes # (Auto) 1.4 x10^3/uL (1.0-4.8) Monocytes # (Auto) 0.6 x10^3/uL (0.0-1.1) Eosinophils # (Auto) 0.2 x10^3/uL (0.0-0.7) Basophils # (Auto) 0.0 x10^3/uL (0.0-0.2) Sodium Level 144 mmol/L (136-145) Potassium Level 3.9 mmol/L (3.5-5.1) Chloride Level 107 mmol/L (98-107) Carbon Dioxide Level 29 mmol/L (21-32) Anion Gap 8 (6-14) Blood Urea Nitrogen 26 mg/dL (7-20) Creatinine 0.9 mg/dL (0.6-1.0) Estimated GFR (Cockcroft-Gault) 60.6 BUN/Creatinine Ratio 29 (6-20) Glucose Level 109 mg/dL (70-99) Lactic Acid Level 1.2 mmol/L (0.4-2.0) Calcium Level 9.3 mg/dL (8.5-10.1) Total Bilirubin 1.0 mg/dL (0.2-1.0) Aspartate Amino Transf (AST/SGOT) 30 U/L (15-37) Alanine Aminotransferase (ALT/SGPT) 8 U/L (14-59) Alkaline Phosphatase 59 U/L (46-116) Total Protein 7.4 g/dL (6.4-8.2) Albumin 3.8 g/dL (3.4-5.0) Albumin/Globulin Ratio 1.1 (1.0-1.7) Anti-Streptolysin O Antibody 30.0 IU/mL (0.0-200.0) Medications Current Medications Clindamycin Phosphate 50 ml @ 100 mls/hr 1X ONCE IV Last administered on 07/09/19 15:53; Start 07/09/19 at 15:00; Stop 07/09/19 at 15:29; Status DC Fentanyl Citrate (Fentanyl 2ml Vial) 50 mcg 1X ONCE IV Last administered on 07/09/19 15:49; Start 07/09/19 at 15:00; Stop 07/09/19 at 15:01; Status DC Ondansetron HCl (Zofran) 4 mg 1X ONCE IV Last administered on 07/09/19 15:49; Start 07/09/19 at 15:00; Stop 07/09/19 at 15:01; Status DC Ondansetron HCl (Zofran) 4 mg PRN Q8HRS PRN IV NAUSEA/VOMITING; Start 07/09/19 at 16:45; Stop 07/10/19 at 11:46; Status DC Fentanyl Citrate (Fentanyl 2ml Vial) 50 mcg PRN Q1HR PRN IV PAIN Last administered on 07/09/19 18:16; Start 07/09/19 at 16:45; Stop 07/10/19 at 16:44 Aspirin (Ecotrin) 81 mg DAILY PO Last administered on 07/10/19 09:28; Start 07/10/19 at 09:00 Atorvastatin Calcium (Lipitor) 20 mg HS PO Last administered on 07/09/19 21:17; Start 07/09/19 at 21:00 Carbidopa/Levodopa (Sinemet 25/100) 2 tab TID PO Last administered on 07/10/19 09:28; Start 07/09/19 at 21:00 Donepezil HCl (Aricept) 5 mg QHS PO Last administered on 07/09/19 21:17; Start 07/09/19 at 21:00 Fluoxetine HCl (PROzac) 10 mg DAILYWSUP PO Last administered on 07/09/19 21:17; Start 07/09/19 at 20:30 Calcium/Vitamin D (Oscal D 500mg/ 200uts) 1 tab DAILY PO Last administered on 07/10/19 09:28; Start 07/10/19 at 09:00 Multivitamins (Thera M Plus) 1 tab DAILY PO Last administered on 07/10/19 09:28; Start 07/10/19 at 09:00 Fish Oil (Fish Oil) 1,000 mg DAILY PO Last administered on 07/10/19 09:28; Start 07/10/19 at 09:00 Vancomycin HCl 1.25 gm/Sodium Chloride 250 ml @ 166.667 mls/hr 1X ONCE IV Last administered on 07/09/19 21:17; Start 07/09/19 at 20:30; Stop 07/09/19 at 21:59; Status DC Vancomycin HCl 750 mg/Sodium Chloride 250 ml @ 250 mls/hr Q12H IV ; Start 07/10/19 at 08:00; Status UNV Cefazolin Sodium 1 gm/Dextrose 50 ml @ 100 mls/hr Q8HRS IV ; Start 07/09/19 at 22:00; Status UNV Cefazolin Sodium (Ancef) 1 gm Q8HRS IVP Last administered on 07/10/19at 05:03; Start 07/09/19 at 22:00 Vancomycin HCl (Vanco Per Pharmacy) 1 each PRN DAILY PRN MC SEE COMMENTS Last administered on 07/09/19at 20:11; Start 07/09/19 at 20:15; Stop 07/10/19 at 12:08; Status DC Vancomycin HCl 1 gm/Sodium Chloride 250 ml @ 250 mls/hr Q24H IV ; Start 07/10/19 at 21:00; Stop 07/10/19 at 12:08; Status DC Vancomycin HCl (Vancomycin Trough Level) 1 each 1X ONCE MC ; Start 07/11/19 at 20:30; Stop 07/10/19 at 12:11; Status DC Heparin Sodium (Porcine) (Heparin Sodium) 5,000 unit Q8HRS SQ Last administered on 07/10/19at 05:03; Start 07/09/19 at 22:00 Ondansetron HCl (Zofran) 4 mg PRN Q6HRS PRN IV NAUSEA/VOMITING; Start 07/10/19 at 11:45 Morphine Sulfate (Morphine Sulfate) 2 mg PRN Q2HR PRN IV PAIN; Start 07/10/19 at 11:45 Acetaminophen/ Hydrocodone Bitart (Lortab 5/325) 1 tab PRN Q4HRS PRN PO PAIN; Start 07/10/19 at 11:45 Active Scripts Active Reported Fluoxetine Hcl 10 Mg Capsule 10 Mg PO DAILYWSUP Lipitor (Atorvastatin Calcium) 20 Mg Tablet 20 Mg PO HS Donepezil Hcl 5 Mg Tablet 1 Tab PO DAILY Aspir-Low (Aspirin) 81 Mg Tablet. 81 Mg PO DAILY Caltrate+D3 Plus Mineral Minis (Ca Carb/D3/Mag Ox/Fish Hatchery Supervisor/Giuseppe/Zn) 1 Each Tablet 1 Each PO DAILY Multi-Vitamin Daily (Multivitamin) 1 Each Tablet 1 Each PO DAILY Sinemet 25-100 Mg Tablet (Carbidopa/Levodopa) 1 Each Tablet 2 Tab PO TID [place] 3 Fish Oil Softgel ([place]-3 Fatty Acids/Fish Oil) 1 Each Capsule.dr 1 Each PO DAILY Vitals/I & O Vital Sign - Last 24 Hours 07/09/19 07/09/19 07/09/19 07/09/19 16:00 17:00 18:00 19:52 Pulse 77 72 78 Resp 20 18 18 B/P (MAP) 133/82 (99) 141/85 (103) 128/79 (95) Pulse Ox 98 98 96 O2 Delivery Room Air 07/09/19 07/09/19 07/10/19 07/10/19 20:05 22:40 03:00 07:00 Temp 97.9 98.0 98.2 98.3 97.9 98.0 98.2 98.3 Pulse 73 94 82 75 Resp 18 18 18 17 B/P (MAP) 168/72 (104) 168/93 (118) 125/71 (89) 159/73 (101) Pulse Ox 98 96 95 95 O2 Delivery Room Air Room Air Room Air Room Air 07/10/19 11:00 Temp 98.4 98.4 Pulse 75 Resp 17 B/P (MAP) 110/61 (77) Pulse Ox 95 O2 Delivery Room Air Intake and Output 07/09/19 07/09/19 07/10/19 15:00 23:00 07:00 Intake Total 100 ml Balance 100 ml CLYDE MOSELEY MD Jul 10, 2019 13:47
[2019-07-10 15:00] VITALS: BP 108/53
--- NOTE | 2019-07-10 16:01 | RAD ---
Right lower extremity arterial duplex ultrasound 07/10/2019 INDICATION: Peripheral vascular disease. Right lower extremity pain. Discoloration. COMPARISON STUDY: None. Discussion: Ultrasound evaluation of the major arteries of the right lower extremity were performed including color Doppler imaging spectral analysis. Right common femoral artery appears grossly patent on color Doppler imaging. Mild calcification is seen. Waveforms and velocities are within acceptable limits. Partially visualized profunda artery is grossly patent. Right superficial femoral artery is grossly patent. Popliteal artery is grossly patent. Anterior tibial, posterior tibial, and peroneal arteries as well as the dorsalis pedis artery appear to be grossly patent. No focal elevation of velocity or consistent waveform morphology changes suggesting hemodynamically significant stenosis are identified. IMPRESSION: No sonographic evidence of hemodynamically significant stenosis involving the major arteries of the right lower extremity Electronically signed by: Jayson Benton MD (07/10/2019 3:58 PM) [id number]
[2019-07-10] MEDS: FLUoxetine HCL 10 MG CAPSULE PO SCH (18:01)
[2019-07-10 19:00] VITALS: BP 112/59
[2019-07-10] MEDS ORDERED: VANCOMYCIN 1 GM in IV NORMAL SALINE 250ML 250 ML IV SCH (21:00)
[2019-07-10] MEDS: ATORVASTATIN CALCIUM 20 MG TABLET PO SCH (22:14)
[2019-07-10] MEDS: DONEPEZIL HCL 5 MG TABLET. PO SCH (22:15)
[2019-07-10 23:00] VITALS: BP 135/72
--- NOTE | 2019-07-11 00:01 | CONS ---
DATE OF CONSULTATION: 07/10/2019 REFERRING PHYSICIAN: Vivek Lyons MD REASON FOR CONSULTATION: Cellulitis. HISTORY OF PRESENT ILLNESS: A 79-year-old female who presented to the ER on 07/09/2019 with a right lower extremity swelling, pain, which she sustained after she fell while her was trying to push a trailer and the trailer ran over her leg. She had a cut on the foot and 2 days later, it started getting red, hot. She had bruising on the right foot and leg after the trailer went over the right leg and also over the right upper extremity, but thought that it was initially getting better. She denies any fevers, chills, nausea, vomiting, diarrhea, abdominal pain. She was started on IV vancomycin, also got a dose of clindamycin and currently is on cefazolin. ID consult has been requested for antibiotic management. Today, she states her pain is improving, swelling, redness remains, bruise remains. She has a blister which she usually gets whenever she has any skin irritation. She denies any nausea, vomiting, diarrhea, abdominal pain, shortness of breath, chest pain, symptoms. Denies being on any antibiotics prior to admission. REVIEW OF SYSTEMS: Negative. ALLERGIES: No known drug allergies. SOCIAL HISTORY: Denies smoking, ETOH, or illicit drug use. , lives with . PAST MEDICAL HISTORY: Parkinson's, hyperlipidemia, depression. PAST SURGICAL HISTORY: Cataract removal. FAMILY HISTORY: As per HPI. CURRENT MEDICATIONS: IV vancomycin, cefazolin, also got a dose of clindamycin. PHYSICAL EXAMINATION: VITAL SIGNS: Temperature 98.3, pulse 75, respiratory rate 17, blood pressure 159/73, oxygen saturation 95% on room air. GENERAL: Alert, oriented x 3 female, lying in bed comfortably, in no acute distress, cooperative, pleasant. HEENT: Normocephalic, atraumatic, anicteric. NECK: Supple, no JVD. LUNGS: Clear bilaterally. No wheezing. HEART: S1, S2. No gallops or murmurs. ABDOMEN: Soft, nontender, nondistended, no rebound or guarding. EXTREMITIES: No edema. No clubbing, no cyanosis. Right lower extremity swelling, bruising, redness present. Superficial abrasion over the dorsum of the right foot. No drainage, no dehiscence. There are 2 blisters in the right lower extremity, one on the leg and one over the thigh. No purulence. Mild swelling going up the right lower leg laterally. MUSCULOSKELETAL: No joint swelling, no decrease in range of motion. DERMATOLOGIC: Warm, dry. No generalized rash except for above. PSYCHIATRIC: Cooperative, appropriate mood and affect. CENTRAL NERVOUS SYSTEM: Alert and oriented x 3, grossly nonfocal. Few involuntary movement from underlying Parkinson's, baseline per patient. LABORATORY DATA: WBC 8.6, hemoglobin 12.5, hematocrit 37.4, platelets 188, neutrophils 74%. Sodium 144, potassium 3.9, chloride 107, bicarbonate 29, BUN 26, creatinine 0.9, glucose 109, lactate 1.2, calcium 9.3, total bilirubin 1.0, AST 30, ALT 8, alkaline phosphatase 59, total protein 7.4, albumin 3.8. Alpha streptolysin antibody 30. IMAGING: Tibia fibula, no fracture or dislocation. Lower extremity ultrasound negative for DVT. Foot x-ray: No fracture or dislocation. Ankle x-ray: No fracture or dislocation. IMPRESSION: 1. Right lower extremity trauma with mild superimposed infection, improving. 2. Right lower leg injury, no fracture, has significant bruising. 3. Right upper extremity injury with bruising. 4. Depression. 5. Parkinson's. 6. Hyperlipidemia. RECOMMENDATIONS: 1. Discontinue vancomycin. 2. Continue cefazolin. 3. Elevate right lower extremity. 4. Anticipate slow recovery. 5. Patient wants discharge, hopefully tomorrow, as has surgery scheduled some time this week. 6. Continue local care. Thank you, Dr. Lyons, for consulting Infectious Disease to participate in this patient's care. If you have any questions, do not hesitate to contact me. MELANY FAGAN MD DR: STEPHANIE/holli JOB#: [id number] / [id number] STANISLAV
[2019-07-11 03:00] VITALS: BP 173/83
[2019-07-11] MEDS: ceFAZolin SODIUM IV Push 1 GM VIAL. IVP SCH (06:11)
[2019-07-11] MEDS: HEPARIN for SUB-Q USE 5,000 UNIT/ML VIAL. SQ SCH (06:27)
[2019-07-11 06:58] LABS: BASO % 1 % (0-3); EOS # 0.3 x10^3/uL (0.0-0.7); EOS % 5 % (0-3); HEMATOCRIT 35.9 % (36.0-47.0); HEMOGLOBIN 12.3 g/dL (12.0-15.5); LYMPH # 1.6 x10^3/uL (1.0-4.8); LYMPH % 29 % (24-48); MEAN CORPUSCULAR HEMOGLOBIN 31 pg (25-35); MEAN CORPUSCULAR HGB CONC 34 g/dL (31-37); MEAN CORPUSCULAR VOLUME 90 fL (79-100); MONO # 0.5 x10^3/uL (0.0-1.1); MONO % 9 % (0-9); NEUT # 3.2 x10^3/uL (1.8-7.7); NEUT % 56 % (31-73); PLATELET COUNT 194 x10^3/uL (140-400); RED CELL DISTRIBUTION WIDTH 12.9 % (11.5-14.5); WHITE BLOOD COUNT 5.6 x10^3/uL (4.0-11.0)
[2019-07-11 07:00] VITALS: BP 163/80
[2019-07-11] MEDS ORDERED: HYDR-2761 PO (08:48)
[2019-07-11] MEDS: CALCIUM CARB/VIT D3 500/200 TABLET. PO SCH (09:55)
[2019-07-11] MEDS: ASPIRIN ENTERIC COATED 81 MG TABLET.DR. PO SCH (09:55)
[2019-07-11] MEDS: OMEGA-3 FATTY ACIDS/FISH OIL 1,000 MG CAPSULE. PO SCH (09:55)
[2019-07-11] MEDS: MULTIVITAMIN with MINERAL TABLET. PO SCH (09:55)
--- NOTE | 2019-07-11 11:44 | PDOC ---
Infectious Disease Note Subjective: Subjective pt is doing better eager to go home today ROS: ROS Negative otherwise. Vital Signs: Vital Signs Vital Signs Date Time Temp Pulse Resp B/P (MAP) Pulse Ox O2 Delivery O2 Flow Rate FiO2 07/11/19 08:00 Room Air 07/11/19 07:00 98.1 75 16 163/80 (107 96 98.1 Physical Exam: PHYSICAL EXAM GENERAL: Alert, oriented x 3 female, lying in bed comfortably, in no acute distress, cooperative, pleasant. HEENT: Normocephalic, atraumatic, anicteric. NECK: Supple, no JVD. LUNGS: Clear bilaterally. No wheezing. HEART: S1, S2. No gallops or murmurs. ABDOMEN: Soft, nontender, nondistended, no rebound or guarding. EXTREMITIES: No edema. No clubbing, no cyanosis. Right lower extremity swelling, bruising, redness present. Improved a lot Superficial abrasion over the dorsum of the right foot. No drainage, no dehiscence. There are 2 blisters in the right lower extremity, one on the leg and one over the thigh. No purulence. Mild swelling going up the right lower leg laterally. MUSCULOSKELETAL: No joint swelling, no decrease in range of motion. DERMATOLOGIC: Warm, dry. No generalized rash except for above. PSYCHIATRIC: Cooperative, appropriate mood and affect. CENTRAL NERVOUS SYSTEM: Alert and oriented x 3, grossly nonfocal. Few involuntary movement from underlying Parkinson's, baseline per patient. Medications: Inpatient Meds: Current Medications Medications (Trade) Dose Ordered Sig/Brenda Start Time Stop Time Status Last Admin Dose Admin Acetaminophen/ Hydrocodone Bitart (Lortab 5/325) 1 tab PRN Q4HRS PRN 07/10/19 11:45 Aspirin (Ecotrin) 81 mg DAILY 07/10/19 09:00 07/11/19 09:57 81 MG Atorvastatin Calcium (Lipitor) 20 mg HS 07/09/19 21:00 07/10/19 23:02 20 MG Calcium/Vitamin D (Oscal D 500mg/ 200uts) 1 tab DAILY 07/10/19 09:00 07/11/19 09:57 1 TAB Carbidopa/Levodopa (Sinemet 25/100) 2 tab TID 07/09/19 21:00 07/10/19 23:02 2 TAB Cefazolin Sodium (Ancef) 1 gm Q8HRS 07/09/19 22:00 07/11/19 06:27 1 GM Cefazolin Sodium 1 gm/Dextrose 50 ml @ 100 mls/hr Q8HRS 07/09/19 22:00 UNV Clindamycin Phosphate 50 ml @ 100 mls/hr 1X ONCE 07/09/19 15:00 07/09/19 15:29 DC 07/09/19 15:53 100 MLS/HR Donepezil HCl (Aricept) 5 mg QHS 07/09/19 21:00 07/10/19 23:02 5 MG Fentanyl Citrate (Fentanyl 2ml Vial) 50 mcg PRN Q1HR PRN 07/09/19 16:45 07/10/19 16:44 DC 07/09/19 18:16 50 MCG Fish Oil (Fish Oil) 1,000 mg DAILY 07/10/19 09:00 07/11/19 09:57 1,000 MG Fluoxetine HCl (PROzac) 10 mg DAILYWSUP 07/09/19 20:30 07/10/19 18:02 10 MG Heparin Sodium (Porcine) (Heparin Sodium) 5,000 unit Q8HRS 07/09/19 22:00 07/11/19 06:27 5,000 UNIT Morphine Sulfate (Morphine Sulfate) 2 mg PRN Q2HR PRN 07/10/19 11:45 Multivitamins (Thera M Plus) 1 tab DAILY 07/10/19 09:00 07/11/19 09:57 1 TAB Ondansetron HCl (Zofran) 4 mg PRN Q6HRS PRN 07/10/19 11:45 Vancomycin HCl (Vanco Per Pharmacy) 1 each PRN DAILY PRN 07/09/19 20:15 07/10/19 12:08 DC 07/09/19 20:11 1 EACH Vancomycin HCl (Vancomycin Trough Level) 1 each 1X ONCE 07/11/19 20:30 07/10/19 12:11 DC Vancomycin HCl 1.25 gm/Sodium Chloride 250 ml @ 166.667 mls/hr 1X ONCE 07/09/19 20:30 07/09/19 21:59 DC 07/09/19 21:17 166.667 MLS/HR Vancomycin HCl 750 mg/Sodium Chloride 250 ml @ 250 mls/hr Q12H 07/10/19 08:00 UNV Vancomycin HCl 1 gm/Sodium Chloride 250 ml @ 250 mls/hr Q24H 07/10/19 21:00 07/10/19 12:08 DC Labs: Lab Laboratory Tests Test 07/11/19 06:40 White Blood Count 5.6 x10^3/uL (4.0-11.0) Red Blood Count 4.00 x10^6/uL (3.50-5.40) Hemoglobin 12.3 g/dL (12.0-15.5) Hematocrit 35.9 % (36.0-47.0) Mean Corpuscular Volume 90 fL (79-100) Mean Corpuscular Hemoglobin 31 pg (25-35) Mean Corpuscular Hemoglobin Concent 34 g/dL (31-37) Red Cell Distribution Width 12.9 % (11.5-14.5) Platelet Count 194 x10^3/uL (140-400) Neutrophils (%) (Auto) 56 % (31-73) Lymphocytes (%) (Auto) 29 % (24-48) Monocytes (%) (Auto) 9 % (0-9) Eosinophils (%) (Auto) 5 % (0-3) Basophils (%) (Auto) 1 % (0-3) Neutrophils # (Auto) 3.2 x10^3/uL (1.8-7.7) Lymphocytes # (Auto) 1.6 x10^3/uL (1.0-4.8) Monocytes # (Auto) 0.5 x10^3/uL (0.0-1.1) Eosinophils # (Auto) 0.3 x10^3/uL (0.0-0.7) Basophils # (Auto) 0.0 x10^3/uL (0.0-0.2) Erythrocyte Sedimentation Rate 15 (0-25) Objective: Assessment: 1. Right lower extremity trauma with mild superimposed infection, improving 2. Right lower leg injury, no fracture, has significant bruising. 3. Right upper extremity injury with bruising. 4. Depression. 5. Parkinson's. 6. Hyperlipidemia. Plan: Plan of Care dc cefazolin. ok to dc home on po keflex probiotics Elevate right lower extremity. Continue local care. d/w MELANY Watts rn, MD Jul 11, 2019 11:44
--- NOTE | 2019-07-11 12:00 | NUR ---
DISCHARGE INSTRUCTIONS GIVEN, QUESTIONS AND CONCERNS ANSWERED, PATIENT VERBALIZED UNDERSTANDING OF DISCHARGE INFORMATION, INCLUDING TAKING ALL MEDICATIONS INSTRUCTED AND FOLLOWING UP WITH HER PRIMARY PROVIDER IN 1-2 WEEKS, PRESCRIPTIONS GIVEN TO PATIENT FOR KEFLEX AND HYDROCODONE, ALL PERSONAL BELONGINGS GATHERED BY THE PATIENT AND PLACED IN BAGS FOR DISCHARGE.
[2019-07-11] MEDS: CARBIDOPA/LEVODOPA 25/100MG TABLET PO SCH (12:07)
--- NOTE | 2019-07-11 12:11 | PDOC3 ---
Discharge Summary Visit Information Date of Admission: Jul 09, 2019 Date of Discharge: Jul 11, 2019 Admitting Diagnosis Comment: Right leg cellulitis - Right lower leg injury - no fracture, significant bruising. HLD - cont statin Depression - cont to monitor Parkinsons - cont nightly donepezil and TID sinemet. Stable disease Final Diagnosis Problems Medical Problems: (1) Cellulitis Status: Acute (2) Depression Status: Chronic (3) HLD (hyperlipidemia) Status: Chronic (4) Injury of right lower leg Status: Acute (5) Parkinsons Status: Chronic Brief Hospital Course Allergies Allergies Coded Allergies Type Severity Reaction Last Updated Verified No Known Drug Allergies 12/24/13 No Vital Signs Vital Signs Date Time Temp Pulse Resp B/P (MAP) Pulse Ox O2 Delivery O2 Flow Rate FiO2 07/11/19 08:00 Room Air 07/11/19 07:00 98.1 75 16 163/80 (107) 96 98.1 Lab Results Laboratory Tests Test 07/09/19 15:20 07/09/19 15:40 07/11/19 06:40 Urine Collection Type Unknown Urine Color Yellow Urine Clarity Clear Urine pH 5.5 Urine Specific [place] 1.025 Urine Protein Negative mg/dL (NEG-TRACE) Urine Glucose (UA) Negative mg/dL (NEG) Urine Ketones (Stick) Negative mg/dL (NEG) Urine Blood Negative (NEG) Urine Nitrite Negative (NEG) Urine Bilirubin Negative (NEG) Urine Urobilinogen Dipstick 0.2 mg/dL (0.2 mg/dL) Urine Leukocyte Esterase Small (NEG) Urine RBC Occ /HPF (0-2) Urine WBC 5-10 /HPF (0-4) Urine Squamous Epithelial Cells Few /LPF Urine Bacteria Few /HPF (0-FEW) Urine Mucus Marked /LPF White Blood Count 8.6 x10^3/uL (4.0-11.0) 5.6 x10^3/uL (4.0-11.0) Red Blood Count 4.08 x10^6/uL (3.50-5.40) 4.00 x10^6/uL (3.50-5.40) Hemoglobin 12.5 g/dL (12.0-15.5) 12.3 g/dL (12.0-15.5) Hematocrit 37.4 % (36.0-47.0) 35.9 % (36.0-47.0) Mean Corpuscular Volume 92 fL (79-100) 90 fL (79-100) Mean Corpuscular Hemoglobin 31 pg (25-35) 31 pg (25-35) Mean Corpuscular Hemoglobin Concent 34 g/dL (31-37) 34 g/dL (31-37) Red Cell Distribution Width 12.8 % (11.5-14.5) 12.9 % (11.5-14.5) Platelet Count 188 x10^3/uL (140-400) 194 x10^3/uL (140-400) Neutrophils (%) (Auto) 74 % (31-73) 56 % (31-73) Lymphocytes (%) (Auto) 16 % (24-48) 29 % (24-48) Monocytes (%) (Auto) 7 % (0-9) 9 % (0-9) Eosinophils (%) (Auto) 2 % (0-3) 5 % (0-3) Basophils (%) (Auto) 1 % (0-3) 1 % (0-3) Neutrophils # (Auto) 6.4 x10^3/uL (1.8-7.7) 3.2 x10^3/uL (1.8-7.7) Lymphocytes # (Auto) 1.4 x10^3/uL (1.0-4.8) 1.6 x10^3/uL (1.0-4.8) Monocytes # (Auto) 0.6 x10^3/uL (0.0-1.1) 0.5 x10^3/uL (0.0-1.1) Eosinophils # (Auto) 0.2 x10^3/uL (0.0-0.7) 0.3 x10^3/uL (0.0-0.7) Basophils # (Auto) 0.0 x10^3/uL (0.0-0.2) 0.0 x10^3/uL (0.0-0.2) Sodium Level 144 mmol/L (136-145) Potassium Level 3.9 mmol/L (3.5-5.1) Chloride Level 107 mmol/L (98-107) Carbon Dioxide Level 29 mmol/L (21-32) Anion Gap 8 (6-14) Blood Urea Nitrogen 26 mg/dL (7-20) Creatinine 0.9 mg/dL (0.6-1.0) Estimated GFR (Cockcroft-Gault) 60.6 BUN/Creatinine Ratio 29 (6-20) Glucose Level 109 mg/dL (70-99) Lactic Acid Level 1.2 mmol/L (0.4-2.0) Calcium Level 9.3 mg/dL (8.5-10.1) Total Bilirubin 1.0 mg/dL (0.2-1.0) Aspartate Amino Transf (AST/SGOT) 30 U/L (15-37) Alanine Aminotransferase (ALT/SGPT) 8 U/L (14-59) Alkaline Phosphatase 59 U/L (46-116) Total Protein 7.4 g/dL (6.4-8.2) Albumin 3.8 g/dL (3.4-5.0) Albumin/Globulin Ratio 1.1 (1.0-1.7) Anti-Streptolysin O Antibody 30.0 IU/mL (0.0-200.0) Erythrocyte Sedimentation Rate 15 (0-25) Laboratory Tests Test 07/11/19 06:40 White Blood Count 5.6 x10^3/uL (4.0-11.0) Red Blood Count 4.00 x10^6/uL (3.50-5.40) Hemoglobin 12.3 g/dL (12.0-15.5) Hematocrit 35.9 % (36.0-47.0) Mean Corpuscular Volume 90 fL (79-100) Mean Corpuscular Hemoglobin 31 pg (25-35) Mean Corpuscular Hemoglobin Concent 34 g/dL (31-37) Red Cell Distribution Width 12.9 % (11.5-14.5) Platelet Count 194 x10^3/uL (140-400) Neutrophils (%) (Auto) 56 % (31-73) Lymphocytes (%) (Auto) 29 % (24-48) Monocytes (%) (Auto) 9 % (0-9) Eosinophils (%) (Auto) 5 % (0-3) Basophils (%) (Auto) 1 % (0-3) Neutrophils # (Auto) 3.2 x10^3/uL (1.8-7.7) Lymphocytes # (Auto) 1.6 x10^3/uL (1.0-4.8) Monocytes # (Auto) 0.5 x10^3/uL (0.0-1.1) Eosinophils # (Auto) 0.3 x10^3/uL (0.0-0.7) Basophils # (Auto) 0.0 x10^3/uL (0.0-0.2) Erythrocyte Sedimentation Rate 15 (0-25) Brief Hospital Course Ms. 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, came in for left leg cellulitis better with IV abx x 2 days with ID on board, NO skin breaks, US and xrays neg, HOme today with wheel chair on PO abx and pain med NO PT needs Pt seen and examined dw ID Consults: id Proc: none dc < 30 Discharge Information Condition at Discharge: Improved, Stable Disposition/Orders: D/C to Home Scheduled Aspirin (Aspir-Low) 81 Mg Tablet.dr, 81 MG PO DAILY for thinner, (Reported) Entered as Reported by: GREGORIO TREVINO on 07/09/191950 Last Action: Continued on 07/09/191999 by CRISTEL KIRK MD Atorvastatin Calcium (Lipitor) 20 Mg Tablet, 20 MG PO HS for FOR CHOLESTEROL, #30 Ref 0 (Reported) Entered as Reported by: GREGORIO TREVINO on 07/09/191950 Last Action: Continued on 07/09/191999 by CRISTEL KIRK MD Ca Carb/D3/Mag Ox/Vba Developer/Giuseppe/Zn (Caltrate+D3 Plus Mineral Minis) 1 Each Tablet, 1 EACH PO DAILY for vit d, (Reported) Entered as Reported by: GREGORIO TREVINO on 07/09/191950 Last Action: Converted on 07/09/191999 by CRISTEL KIRK MD Carbidopa/Levodopa (Sinemet 25-100 Mg Tablet) 1 Each Tablet, 2 TAB PO TID for parkinsons, (Reported) Entered as Reported by: GREGORIO TREVINO on 07/09/191950 Last Action: Continued on 07/09/191999 by CRISTEL KIRK MD Donepezil Hcl (Donepezil Hcl) 5 Mg Tablet, 1 TAB PO DAILY for alzheimers, #30 Ref 5 (Reported) Entered as Reported by: GREGORIO TREVINO on 07/09/191950 Last Action: Continued on 07/09/191999 by CRISTEL KIRK MD Fluoxetine Hcl (Fluoxetine Hcl) 10 Mg Capsule, 10 MG PO DAILYWSUP for depression, (Reported) Entered as Reported by: GREGORIO TREVINO on 07/09/191950 Last Action: Continued on 07/09/191999 by CRISTEL KIRK MD Multivitamin (Multi-Vitamin Daily) 1 Each Tablet, 1 EACH PO DAILY for multi vit, (Reported) Entered as Reported by: GREGORIO TREVINO on 07/09/191950 Last Action: Converted on 07/09/191999 by CRISTEL KIRK MD [place]-3 Fatty Acids/Fish Oil ([place] 3 Fish Oil Softgel) 1 Each Capsule.dr, 1 EACH PO DAILY for heart health, (Reported) Entered as Reported by: GREGORIO TREVINO on 07/09/191950 Last Action: Converted on 07/09/191999 by CRISTEL KIRK MD Scheduled PRN Hydrocodone Bit/Acetaminophen (Hydrocodone-Apap 5-325 ) 1 Tab Tablet, 1 TAB PO PRN Q4HRS PRN for PAIN, #15 Prescribed by: CLYDE MOSELEY on 07/11/19 0848 CLYDE MOSELEY MD Jul 11, 2019 12:11
--- NOTE | 2019-07-11 12:25 | NUR ---
PATIENT LEAVES THE UNIT PER WHELCHAIR ACCOMPANIED BY HER SPOUSE AND SUGAR DRIER ON THE UNIT, EMOTIONAL SUPPORT GIVEN.
== END 2019-07-11 12:25 | disposition home or self-care (01) | DRG 603 ==
LOC: ER 12:58 → 5 SOUTH 16:41
PROVIDERS: ADMIT Internal Medicine; ATTEND Internal Medicine
DX: L03.115 Cellulitis of right lower limb (principal); E78.5 Hyperlipidemia, unspecified; G20 Parkinson's disease; F32.9 Major depressive disorder, single episode, unspecified; Z99.3 Dependence on wheelchair; R27.0 Ataxia, unspecified; Z82.49 Family history of ischemic heart disease and other diseases of the circulatory system; W18.39XA Other fall on same level, initial encounter; Y93.89 Activity, other specified; Y92.89 Other specified places as the place of occurrence of the external cause; Y99.8 Other external cause status
CPT/HCPCS: 36415; 73590; 73610; 73630; 80053; 81001; 83605; 85025; 85651; 86060; 87086; 93926; 93971; J0690; J1644; J2405; J3010; J3370; J3490; J7050; 97116; 97535; 99285-25; G0378; J7030